=== PATIENT | male | born 1975 | race Caucasian/White ===

== ENCOUNTER 2018-08-02 12:23 | Inpatient (IN) | payer OTHER ==
[~2018-08-02] VITALS: Ht 172.7 cm; Wt 112.9 kg
[2018-08-02] VITALS (7 sets, daily range): BP systolic 137–185; BP diastolic 80–97
[2018-08-02 12:43] LABS: ABSOLUTE BASOPHILS 0.1 thou/uL (0.0-0.2); ABSOLUTE LYMPHOCYTES 1.5 thou/uL (0.8-5.3); ABSOLUTE MONOCYTES 0.9 thou/uL (0.0-1.2); ABSOLUTE NEUTROPHILS 5.6 thou/uL (1.6-8.1); BASOPHILS 0.8 %; HEMATOCRIT 43.7 % (42.0-52.0); HEMOGLOBIN 15.3 gm/dL (14.0-18.0); LYMPHOCYTES 18.6 %; MCH 31.7 pg (26.0-34.0); MCHC 34.9 g/dL (28.0-37.0); MCV 90.8 fL (80.0-100.0); MONOCYTES 10.8 %; MPV 9.9 fl. (7.2-11.1); NUCLEATED RBCS 0 /100WBC; PLATELET COUNT* 300 thou/uL (150-400); POLYS 69.8 %; RBC 4.82 mil/uL (4.50-6.00); RDW-CV 16.4 % (10.5-14.5)
[2018-08-02 13:21] LABS: ANION GAP 18 mmol/L (7-16); BUN 13 mg/dL (7-18); CALCIUM 9.4 mg/dL (8.5-10.1); CHLORIDE 96 mmol/L (98-107); CO2 26 mmol/L (21-32); CREATININE 1.1 mg/dL (0.6-1.3); GLUCOSE 113 mg/dL (70-99); POTASSIUM 3.7 mmol/L (3.5-5.1); SODIUM 140 mmol/L (136-145)
[2018-08-02 13:33] LABS: ALBUMIN 4.8 g/dL (3.4-5.0); ALKALINE PHOSPHATASE 82 U/L (46-116); LIPASE 171 U/L (73-393); MAGNESIUM 1.9 mg/dL (1.8-2.4); SGOT 161 U/L (15-37); SGPT 197 U/L (30-65); TOTAL BILIRUBIN 0.8 mg/dL (<0.1-1.0); TOTAL PROTEIN 8.6 g/dL (6.4-8.2); TROPONIN-I LEVEL <0.06 ng/mL (<0.06)
[2018-08-02 14:57] LABS: URINE BILIRUBIN NEGATIVE (Negative); URINE BLOOD 2+ (Negative); URINE CLARITY CLEAR; URINE COLOR YELLOW; URINE GLUCOSE-RANDOM NEGATIVE (Negative); URINE LEUKOCYTES-REFLEX NEGATIVE (Negative); URINE NITRITE-REFLEX NEGATIVE (Negative); URINE PROTEIN 2+ (Negative); URINE UROBILINOGEN 0.2 E.U./dl (0.2-1.0)
[2018-08-02 14:59] LABS: ACETEST (KETONE CONFIRMATORY) Moderate (Negative); URINE KETONES 3+ (Negative)
[2018-08-02 15:09] LABS: BACTERIA-REFLEX None Seen /HPF (None Seen); CASTS None Seen /LPF (None Seen); CRYSTALS None Seen /LPF (None Seen); SQUAMOUS NONE SEEN /LPF (0-3); URINE RBC None Seen /HPF (0-2); URINE WBC-REFLEX None Seen /HPF (0-5)
[2018-08-02 15:12] LABS: AMP/METHAMP Negative (Negative); BARBITURATES Negative (Negative); BENZODIAZEPINES POSITIVE (Negative); COCAINE Negative (Negative); METHADONE Negative (Negative); OPIATES Negative (Negative); PCP Negative (Negative); THC Negative (Negative)
--- NOTE | 2018-08-02 16:24 | EKG ---
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 : 1975 Requested By: Topher Haile Order Number: [id number] MD: Yobany Velez Measurements Intervals [place] Rate: 101 P: -31 TN: 125 QRS: -44 QRSD: 92 T: 8 QT: 424 QTc: 550 Interpretive Statements Sinus tachycardia Left axis deviation RSR' in V1 or V2, probably normal variant Prolonged QT interval Artifact in lead(s) II,aVR,aVL,aVF,V1,V2 No previous ECG available for comparison Electronically Signed On 08-02-2018 16:24:21 CDT by Yobany Velez [email or web address] <ELECTRONICALLY SIGNED> By: Yobany Velez MD, [facility] 08/02/18 1624 1227 1227 Yobany Velez MD, [facility] /EPI
--- NOTE | 2018-08-02 20:33 | NUR ---
PT ADMITTED TO ROOM 006 VIA CART FROM ED AT 1500. CIWA 16. PT UP FREQUENTLY AND NOT FOLLOWING DIRECTION. IV PULLED OUT. PT UNABLE TO RECALL WHAT MEDICATION HE TAKES. MOTHER NOTED THAT HE IS NON-COMPLIANT AND DOESN'T TAKE HIS MEDICATION. PT HAVING CONSTANT NAUSEA UNRELIEVED WITH PRN ZOFRAN. INSTRUCTED TO TAKE IT SLOW WITH EATING. ASSESSMENT CHARTED. VSS.
[2018-08-03] VITALS (8 sets, daily range): BP systolic 117–164; BP diastolic 62–110
[2018-08-03 05:28] LABS: ABSOLUTE LYMPHOCYTES 1.5 thou/uL (0.8-5.3); ABSOLUTE MONOCYTES 0.4 thou/uL (0.0-1.2); ABSOLUTE NEUTROPHILS 1.5 thou/uL (1.6-8.1); BASOPHILS 0.9 %; EOSINOPHILS 0.2 %; HEMOGLOBIN 13.5 gm/dL (14.0-18.0); LYMPHOCYTES 43.1 %; MCH 30.4 pg (26.0-34.0); MCV 92.1 fL (80.0-100.0); MONOCYTES 12.9 %; MPV 8.5 fl. (7.2-11.1); NUCLEATED RBCS 0 /100WBC; POLYS 42.9 %; RBC 4.45 mil/uL (4.50-6.00); RDW-CV 15.6 % (10.5-14.5); WBC 3.5 thou/uL (4.0-11.0)
--- NOTE | 2018-08-03 05:33 | NUR ---
PATIENT REMAINED NONCOMPLIANT WITH COMMANDS DURING SHIFT. BED ALARMS ON, PATIENT REORIENTED FREQUENTLY DURING SHIFT, PRECEDEX GTT STARTED. PATIENT REMIANS CONFUSED AND RESISTANT TO FOLLOWING COMMANDS. PATIENT FREQUENTLY GETS OUT OF BED. PATIENT'S HEART RATE DECREASED TO THE 60'S AND O2 SAT DROPS TO THE 80S WHILE ASLEEP. PLACED 2L OXYGEN ON VIA NC, BUT PATIENT REMOVES CANNULA. ASSESSMENTS CHARTED. VSS.
[2018-08-03 05:39] LABS: APTT 27.9 Seconds (25.0-31.3); INR 1.1; PROTIME 10.8 Seconds (9.20-11.50)
[2018-08-03 05:40] LABS: AMMONIA 35 umol/L (11-32); ANION GAP 9 mmol/L (7-16); BUN 8 mg/dL (7-18); CALCIUM 8.8 mg/dL (8.5-10.1); CHLORIDE 98 mmol/L (98-107); CHOLESTEROL 174 mg/dL (<200); CO2 29 mmol/L (21-32); CREATININE 0.8 mg/dL (0.6-1.3); GLUCOSE 104 mg/dL (70-99); HDL CHOLESTEROL 89 mg/dL (>40); LDL CHOLESTEROL 76 mg/dL (<100); MAGNESIUM 2.4 mg/dL (1.8-2.4); PHOSPHORUS* 2.5 mg/dL (2.5-4.9); POTASSIUM 3.5 mmol/L (3.5-5.1); SODIUM 136 mmol/L (136-145); TRIGLYCERIDE 46 mg/dL (<150); VLDL 9 mg/dL (<40)
[2018-08-03 05:45] LABS: PLATELET COUNT* 94 thou/uL (150-400)
[2018-08-03 05:51] LABS: SERUM ASSESSMENT CLEAR
--- NOTE | 2018-08-03 10:00 | NUR ---
PT ADMITTED YESTERDAY WITH ALCOHOL WITHDRAWL. PT REMAINS CONFUSED TODAY BUT A LITTLE LESS IMPLUSIVE PER NURSING. NO FAMILY IN THE ROOM AT THIS TIME. CASE MGT WILL CONTINUE TO FOLLOW.
--- NOTE | 2018-08-03 13:03 | EKG ---
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1975 Requested By: Jarrod Solano Order Number: [id number] Reading MD: Alberto Higuera Measurements Intervals [place] Rate: 65 P: 45 ME: 172 QRS: -28 QRSD: 108 T: -21 QT: 478 QTc: 498 Interpretive Statements Sinus rhythm Borderline left axis deviation Abnormal R-wave progression, early transition Nonspecific T abnormalities, inferior leads Borderline prolonged QT interval Compared to ECG 08/02/2018 12:27:52 T-wave abnormality now present Sinus tachycardia no longer present Electronically Signed On 08-03-2018 13:03:27 CDT by Alberto Higuera [email or web address] <ELECTRONICALLY SIGNED> By: Alberto Higuera MD, [facility] 08/03/18 1303 4 Alberto Higuera MD, [facility] /EPI
--- NOTE | 2018-08-03 16:04 | NUR ---
PT HR IN THE 40'S. DR CASPER NOTIFIED. PRESIDEX DECREASED FROM 0.[address] REQUEST. STAT TROP AND EKG ORDERED AND COMPLETED. CARDIOLOGY CONSULT. DR CARPIO HERE TO SEE PT. ONE TIME ATROPINE ORDERED IF HR REMAINS IN THE 40'S.
--- NOTE | 2018-08-03 17:13 | NUR ---
PT CARE ASSUMED AFTER REPORT. ASSESSMENTS COMPLETE. NOW SR ON MONITOR. CIWA SCORE HAS DECREASED THROUGH OUT THE DAY. PT LESS CONFUSED THAN THIS MORNING. A/O X4 NOW. UP WITH STB. IVF AND PRESIDEX INFUSING. PT ABLE TO USE CALL LIGHT APPROPIATLY. MOTHER HERE TO VISIT. DENIES PAIN. PROGRESSING TOWARDS GOALS.
[2018-08-04] VITALS (9 sets, daily range): BP systolic 123–143; BP diastolic 65–90
[2018-08-04 03:53] LABS: ABSOLUTE MONOCYTES 0.3 thou/uL (0.0-1.2); ABSOLUTE NEUTROPHILS 1.3 thou/uL (1.6-8.1); BASOPHILS 0.9 %; EOSINOPHILS 0.8 %; HEMATOCRIT 40.1 % (42.0-52.0); HEMOGLOBIN 13.2 gm/dL (14.0-18.0); LYMPHOCYTES 36.9 %; MCH 30.7 pg (26.0-34.0); MCV 92.9 fL (80.0-100.0); MONOCYTES 10.8 %; MPV 9.5 fl. (7.2-11.1); NUCLEATED RBCS 0 /100WBC; PLATELET COUNT* 72 thou/uL (150-400); POLYS 50.6 %; RBC 4.31 mil/uL (4.50-6.00); RDW-CV 15.3 % (10.5-14.5); WBC 2.7 thou/uL (4.0-11.0)
[2018-08-04 04:09] LABS: CALCIUM 8.3 mg/dL (8.5-10.1); CREATININE 0.8 mg/dL (0.6-1.3); PHOSPHORUS* 2.5 mg/dL (2.5-4.9)
--- NOTE | 2018-08-04 05:42 | NUR ---
VITALS STABLE, AFEBRILE. PATIENT SLEEPING THROUGH THE NIGHT. CIWA 8 AT THE BEGINNING OF SHIFT, CURRENTLY NO WITHDRAWAL SYMPTOMS, BUT PATIENT STILL SLEEPING. POTASSIUM REPLACED PER PROTOCOL. PATIENT STABLE ON FEET, ABLE TO USE COMMODE, GAVE HIMSELF A BATH. USES CALL LIGHT PROPERLY. ABLE TO TURN SELF IN BED. PRECEDEX RUNNING AT 0.1 MCG/KG/HR. HR STAYS IN 50s-60s, OCCASSIONALLY IN HIGH 40s BUT BOUNCES BACK UP WITH NO MEDICATION SUPPORT. PATIENT USES HIS OWN CPAP, ABLE TO GET PLENTY OF REST THIS EVENING.
--- NOTE | 2018-08-04 10:54 | EKG ---
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1975 Requested By: Jarrod Solano Order Number: [id number] Reading MD: Yobany Velez Measurements Intervals [place] Rate: 66 P: 33 [place]: 182 QRS: -34 QRSD: 105 T: -22 QT: 496 QTc: 520 Interpretive Statements Sinus rhythm Left axis deviation Nonspecific T abnormalities, inferior leads Prolonged QT interval Compared to ECG 08/03/2018 08:15:59 No significant changes Electronically Signed On 08-04-2018 10:54:39 CDT by Yobany Velez [email or web address] <ELECTRONICALLY SIGNED> By: Yobany Velez MD, [facility] 08/04/18 1054 1555 1555 Yobany Velez MD, [facility] /EPI
--- NOTE | 2018-08-04 15:32 | NUR ---
Have tried x2 today to assess patient and discuss alcohol treamtment options. Pt busy with the nurse the first time and gone for a test the second time. Will try again tomorrow. Pt does have [employer] benefits, so may already be aware of resources thru the V[employer].
--- NOTE | 2018-08-04 16:22 | EXE ---
[place] [address] STRESS ECHOCARDIOGRAM Name: KIARA SLADE Room: [facility] IN ..#: [id number] Admission: 08/02/18 Attend Phys: Jarrod Solano MD Discharge: Date of : 79 Date of Service: 08/04/18 1621 Report #: [id number] THIS REPORT FOR: //name// APPROVED REPORT Study performed: 08/04/2018 13:51:39 Exam: Stress Echocardiogram Indication: Chest pain Patient Location: In-Patient Stress Nurse: Libby Storm RN Room #: 006 Supervising Physician: Yobany Velez MD Status: routine Ht: 5 ft 8 in HR: 86 bpm BP: 137/89 mmHg Rhythm: NSR Medical History Allergies: PCN Cardiac Risk Factors: Tobacco History (Current/Recent) Procedure The patient underwent an Exercise Stress Test using the Wilfred Protocol. Blood pressure, heart rate, and EKG were monitored. An Echocardiogram was performed by library circulation technician in four stages in quad fashion. At peak stress, four selected images were obtained and placed side by side with resting images for comparison. Stress Test Details Stress Test: Exercise stress testing was performed using a Wilfred protocol. HR Resting HR: 86 bpm Max Heart Rate (APMHR): 179 bpm Max HR Achieved: 162 bpm Target HR (85% APMHR): 152 bpm % of APMHR: 90 Recovery HR: 92 bpm HR response to stress: Normal HR response to stress BP Resting BP: 137/89 mmHg Max BP: 183/73 mmHg Recovery BP: 146/97 mmHg BP response to stress: [place] [address] STRESS ECHOCARDIOGRAM Name: KIARA SLADE Room: [address]#: [id number] Admission: 08/02/18 Attend Phys: Jarrod Solano MD Discharge: Date of : 79 Date of Service: 08/04/18 1621 Report #: [id number] stress. ECG Resting ECG: Sinus Rhythm Stress ECG: Sinus Tachycardia ST Change: Normal Maximum ST Deviation: 0 mm Arrhythmia: None Recovery ECG: Sinus Rhythm Recovery ST Change: Normal Recovery ST Deviation: 0 mm Recovery Arrhythmia: None Clinical Reason for Termination: Maximal effort Stress Symptoms: Chest pain Exercise duration: 8 min 19 sec Highest Stage Achieved: Stage 3: 3.4 mph at 14% grade. Exercise capacity: 10.16 METs Pre-Stress Echo The resting Echocardiogram showed normal left ventricular contractility with an estimated Ejection Fraction of about 55-60%. Mild left ventricular hypertrophy Trivial mitral regurgitation. Mild aortic regurgitation. Trivial tricuspid regurgitation. Post-Stress Echo The stress Echocardiogram showed normal left ventricular contractility with an estimated Ejection Fraction of about 65-70%. Conclusion Clinical Response: Equivocal Exercise Capacity: Average Stress ECG Response: Non-ischemic Stress Echo Images: Non-ischemic low risk stress echo for predicting future cardiac events Other Information Study Quality: [place] [address] STRESS ECHOCARDIOGRAM Name: KIARA SLADE Room: [address] IN [facility].#: [id number] Admission: 08/02/18 Attend Phys: Jarrod Solano MD Discharge: Date of : 79 Date of Service: 08/04/181620 Report #: [id number] <Conclusion> low risk stress echo for predicting future cardiac events <ELECTRONICALLY SIGNED> By: Yobany Velez MD, FACC 08/04/181620 20 20 Yobany Velez MD, FACC /INF
--- NOTE | 2018-08-04 17:43 | CON ---
[address] [address] CONSULTATION Name: KIARA SLADE Room: [address] IN M.R.#: [id number] Admission: 08/02/18 Attend Phys: Jarrod Solano MD Discharge: Date of : 79 Report #: [id number] THIS REPORT FOR: //name// CC: [facility] physician/PCP Jarrod Solano MD INDICATION: Chest pain and bradycardia. HISTORY OF PRESENT ILLNESS: The patient is a 43-year-old gentleman with no prior cardiac history. He was brought in to the hospital yesterday with ETOH withdrawal. In this setting, he was noting midsternal to left of sternum chest pain radiating to the left arm for approximately 20-30 minutes. There were no associated symptoms of diaphoresis, shortness of breath, nausea or vomiting, although, he was sick from alcohol withdrawal. The patient denies any prior history of myocardial infarction. There is no history of stress testing. He smokes cigarettes rarely. He denies any history of hypertension, diabetes or dyslipidemia. There was no family history of coronary artery disease. EKG shows sinus rhythm with nonspecific T-wave abnormalities. Troponins are less than 0.06 on 3 separate occasions. While in the ICU, the patient has had some transient bradycardia with which he was asymptomatic. He remains hemodynamically stable. PAST MEDICAL HISTORY: 1. Anxiety. 2. Posttraumatic stress disorder. 3. Alcohol abuse. 4. Depression. FAMILY HISTORY: Noncontributory. SOCIAL HISTORY: The patient smokes marijuana, drinks alcohol regularly. He denies use of daily tobacco use, although, he smokes cigarettes occasionally. PHYSICAL EXAMINATION: VITAL SIGNS: Presently, pulse is 65 and regular. Blood pressure is 138/78. GENERAL: This is a pleasant gentleman is in no distress. Mood and affect appropriate. HEENT: Extraocular muscles intact. Mucous membranes are moist. NECK: Shows no jugular venous distention. There are no carotid bruits. CHEST: Reveals clear lung caldera without wheezes or rales. CARDIAC: Reveals regular rhythm with normal S1 and S2. I do not appreciate gallop or murmur. ABDOMEN: Reveals normal bowel sounds. The abdomen is soft and nontender. EXTREMITIES: Shows no edema. Peripheral pulses are 2+ [place] [address] CONSULTATION Name: KIARA SLADE Room: [address] IN [facility].#: [id number] Admission: 08/02/18 Attend Phys: Jarrod Solano MD Discharge: Date of : 79 Report #: [id number] IMPRESSION AND RECOMMENDATIONS: 1. Chest pain. We will proceed with noninvasive stress testing. Further intervention pending the results of that study. 2. Bradycardia. Presently stable. He is not having any significant arrhythmias. We will obtain echocardiogram. At this point in time, the patient appears relatively stable from a cardiac standpoint. We will follow pending the results of the echocardiogram and stress test. <ELECTRONICALLY SIGNED> By: Alberto Higuera MD, FACC 08/04/18 1743 1611 0950Michael Juliet Higuera MD, FACC /nt
--- NOTE | 2018-08-04 18:32 | NUR ---
PATIENT TELE STATUS, AXOX4, CIWAS REMAIN LOW THIS SHIFT. FLUIDS INFUSING. NO PAIN, NAUSEA OR SHORTNESS OF BREATH. NO CONCERNS AT THIS TIME. STRESS ECHO DONE TODAY AND ALL NORMAL. BED IN LOWEST POSTION, CALL LIGHT IN REACH. CARDAIC MONITOR IN PLACE.
[2018-08-05] VITALS: BP 139/79
[2018-08-05 04:00] VITALS: BP 143/84
--- NOTE | 2018-08-05 04:13 | NUR ---
ASSUMED CARE OF PT FROM THE ICU AT 1920. PT IS ALERT AND ORIENTED. VSS. PERRLA. NO COMPLAINTS OF PAIN. STEADY GAIT. PT IS IN SINUS RYTHM ON THE TELEMETRY. PT IS RESTING COMFORTABLY IN BED. RESPIRATIONS ARE EVEN AND NONLABORED. WILL CONTINUE TO MONITOR PT.
[2018-08-05 05:43] LABS: HEMATOCRIT 43.6 % (42.0-52.0); HEMOGLOBIN 14.4 gm/dL (14.0-18.0); MCH 30.9 pg (26.0-34.0); MCHC 33.1 g/dL (28.0-37.0); MCV 93.3 fL (80.0-100.0); RBC 4.67 mil/uL (4.50-6.00); RDW-CV 15.5 % (10.5-14.5); WBC 3.5 thou/uL (4.0-11.0)
[2018-08-05 05:45] LABS: CALCIUM 9.1 mg/dL (8.5-10.1); CREATININE 0.7 mg/dL (0.6-1.3); MAGNESIUM 2.2 mg/dL (1.8-2.4); POTASSIUM 3.4 mmol/L (3.5-5.1)
[2018-08-05 07:05] VITALS: BP 150/95
[2018-08-05 12:00] VITALS: BP 165/95
--- NOTE | 2018-08-05 15:00 | NUR ---
INITAL ASSESSMENT COMPLETED AT START OF SHIFT. VSS. TRACING SR ON MONITOR. PT DENIES ANY NEEDS AT [facility]. CLWR.
[2018-08-05 15:03] VITALS: BP 165/95
[2018-08-05 15:08] VITALS: BP 165/95
== END 2018-08-05 15:19 | disposition home or self-care (01) | DRG 391 ==
LOC: M.ERS 12:23 → M.TBA-ER 13:46 → M.ICU 13:46 → M.2W 08-04 19:39
PROVIDERS: Emergency Medicine Emergency Medical Services; ADMIT Family Medicine
DX: K29.20 Alcoholic gastritis without bleeding (principal); G93.41 Metabolic encephalopathy; F10.239 Alcohol dependence with withdrawal, unspecified; D61.818 Other pancytopenia; F41.9 Anxiety disorder, unspecified; F32.9 Major depressive disorder, single episode, unspecified; K74.60 Unspecified cirrhosis of liver; F43.10 Post-traumatic stress disorder, unspecified; R00.1 Bradycardia, unspecified; F17.210 Nicotine dependence, cigarettes, uncomplicated; E87.6 Hypokalemia; G47.33 Obstructive sleep apnea (adult) (pediatric); E66.01 Morbid (severe) obesity due to excess calories; Z68.37 Body mass index [BMI] 37.0-37.9, adult; Z79.899 Other long term (current) drug therapy; Z88.0 Allergy status to penicillin

== ENCOUNTER 2020-10-12 23:14 | Emergency (ER) | payer OTHER ==
[~2020-10-12] VITALS: Ht 188 cm; Wt 95.3 kg
[2020-10-13 00:19] LABS: HEMATOCRIT 47.5 % (42.0-52.0); HEMOGLOBIN 16.1 gm/dL (14.0-18.0); MCH 30.2 pg (26.0-34.0); MCHC 33.8 g/dL (28.0-37.0); MCV 89.2 fL (80.0-100.0); MPV 8.1 fl. (7.2-11.1); RBC 5.32 mil/uL (4.50-6.00); RDW-CV 13.6 % (10.5-14.5)
[2020-10-13 00:31] LABS: CALCIUM 8.8 mg/dL (8.5-10.1); CREATININE 1.3 mg/dL (0.6-1.3); POTASSIUM 3.6 mmol/L (3.5-5.1)
[2020-10-13 00:35] LABS: ALBUMIN 5.3 g/dL (3.4-5.0); ALCOHOL 254 mg/dL (<10); SALICYLATE 3.1 mg/dL (2.8-20.0); TOTAL BILIRUBIN 0.4 mg/dL (<0.1-1.0); TOTAL PROTEIN 9.3 g/dL (6.4-8.2)
[2020-10-13 00:36] LABS: ACETAMINOPHEN < 2 ug/mL (10-30)
[2020-10-13] MEDS ORDERED: TRAZODONE HCL100 MG PO (04:33)
[2020-10-13] MEDS ORDERED: CLOBETASOL EMOL15 GM TOP (04:34)
[2020-10-13] MEDS ORDERED: LEXAPRO20 MG PO (04:35)
[2020-10-13] MEDS ORDERED: FISH OIL 1,0001 EAC9 PO (04:35)
[2020-10-13] MEDS ORDERED: FLONASE 0.05%50 MCG NASAL (04:35)
[2020-10-13] MEDS ORDERED: MELATONIN3 M1 PO (04:37)
[2020-10-13] MEDS ORDERED: KETOCONAZOLE15 GM TOP (04:37)
[2020-10-13] MEDS ORDERED: HYDROXYZINE PAM25 M1 PO (04:37)
[2020-10-13] MEDS ORDERED: PROPRANOLOL 20M20 M1 PO (04:38)
[2020-10-13] MEDS ORDERED: GRALISE600 MG PO (04:39)
[2020-10-13] MEDS ORDERED: MINIPRESS5 MG PO (04:40)
--- NOTE | 2020-10-13 10:10 | EKG ---
[place] [address] ELECTROCARDIOGRAM REPORT Name: KIARA SLADE Room: [facility]#: [id number] Admission: 10/12/20 Attend Phys: Discharge: Date of : 79 Date of Service: 10/13/20 0118 Report #: [id number] THIS REPORT FOR: //name// [facility] ED Test Date: 2020-10-13 Test Time: 01:18:21 Pat Name: KIARA SLADE Department: Room: Gender: Critical Care Rn: : 1975 Requested By: Symone Thurston Order Number: [id number] MD: Yobany Velez Measurements Intervals [place] Rate: 94 P: 49 ID: 181 QRS: -33 QRSD: 102 T: 26 QT: 378 QTc: 473 Interpretive Statements Sinus rhythm Incomplete RBBB and LAFB RSR' in V1 or V2, right VCD or RVH Compared to ECG 08/03/2018 15:55:47 Left anterior fascicular block now present Incomplete right bundle-branch block now present T-wave abnormality no longer present Prolonged QT interval no longer present Electronically Signed On 10-13-2020 10:10:07 CDT by Yobany Velez [email or web address] <ELECTRONICALLY SIGNED> By: Yobany Velez MD, [facility] 10/13/20 1010 7 7 Yobany Velez MD, [facility] /EPI
[2020-10-13] MEDS ORDERED: CLONAZEPAM 1 MG1 M1 PO (11:05)
[2020-10-13] MEDS ORDERED: HYDROCODON-ACE1 EAC7 PO (11:07)
[2020-10-13 11:12] LABS: URINE BILIRUBIN NEGATIVE (Negative); URINE BLOOD NEGATIVE (Negative); URINE CLARITY CLEAR; URINE COLOR YELLOW; URINE GLUCOSE-RANDOM NEGATIVE (Negative); URINE KETONES 1+ (Negative); URINE LEUKOCYTES NEGATIVE (Negative); URINE NITRITE NEGATIVE (Negative); URINE PROTEIN 1+ (Negative); URINE SPECIFIC GRAVITY >= 1.030 (1.005-1.030); URINE UROBILINOGEN 0.2 E.U./dl (0.2-1.0)
[2020-10-13 11:16] VITALS: BP 122/60
[2020-10-13 11:19] LABS: AMP/METHAMP Negative (Negative); BARBITURATES Negative (Negative); BENZODIAZEPINES Negative (Negative); COCAINE Negative (Negative); METHADONE Negative (Negative); OPIATES Negative (Negative); PCP Negative (Negative); THC POSITIVE (Negative)
== END 2020-10-13 11:19 | disposition home or self-care (01) ==
LOC: M.ERS 23:14
PROVIDERS: Personal Emergency Response Attendant
DX: F10.129 Alcohol abuse with intoxication, unspecified (principal); R45.851 Suicidal ideations; R45.850 Homicidal ideations; F43.10 Post-traumatic stress disorder, unspecified; F41.9 Anxiety disorder, unspecified; F32.9 Major depressive disorder, single episode, unspecified; Z79.899 Other long term (current) drug therapy; Z88.0 Allergy status to penicillin; Y90.8 Blood alcohol level of 240 mg/100 ml or more; S82.092A Other fracture of left patella, initial encounter for closed fracture; X58.XXXA Exposure to other specified factors, initial encounter; Y93.89 Activity, other specified; Y92.89 Other specified places as the place of occurrence of the external cause; Y99.8 Other external cause status